=== PATIENT | female | born 1955 | race Two or more races ===

== ENCOUNTER 2020-09-09 13:08 | Day surgery (SDC) | payer OTHER ==
[~2020-09-09 13:08] MED LIST: CLONAZEPAM2 M1 PO; GLUCOTROL10 MG PO; LANTUS SOL100 UNIT/1; PEPCID AC10 MG PO; ZOLOFT100 MG PO
== END 2020-09-10 00:45 | disposition home or self-care (01) ==
LOC: CIR.AMB 13:08
PROVIDERS: ATTEND Colon & Rectal Surgery
DX: K64.4 Residual hemorrhoidal skin tags (principal); K64.8 Other hemorrhoids; K64.1 Second degree hemorrhoids; Z20.828 Contact with and (suspected) exposure to other viral communicable diseases